=== PATIENT | male | born 1985 | race Caucasian/White ===

== ENCOUNTER 2018-07-17 20:00 | Emergency (ER) | payer SELFPAY ==
[~2018-07-17] VITALS: Ht 175.3 cm; Wt 61.0 kg
[~2018-07-17 20:00] MED LIST: ACULAR0.5 % OD; CEPHALEXIN500 MG OR; DARVOCET-N 100100 MG OR; DILAUDID4 MG OR; ELIMITE5 % EX; FLEXERIL OR; FLEXERIL10 MG OR; KEFLEX500 MG OR; LORTAB 5 OR; MEDDOSEPAK OR; NAPROSYN500 MG OR; NO HOME MEDS; PERCOCET 5/325M1 TAB PO; PRISTIQ50 MG OR; SEROQUEL200 MG OR; TEGRETOL OR; TRAMADOL HCL50 MG OR; TRIMOX500 MG PO; ULTRAM50 M1 PO; ULTRAM50 MG OR; VALIUM5 MG OR; VICOPROFEN OR; XANAX0.5 MG PO; ZOFRAN ODT4 MG OR; [UNRECOGNIZED DRUG - OTHER] OR
[2018-07-17] MEDS ORDERED: VOLTAREN - GENE75 MG PO (21:36)
[2018-07-17 22:00] VITALS: BP 127/79
== END 2018-07-17 22:00 | disposition home or self-care (01) | DRG 605 ==
LOC: ED 20:00
DX: S20.211A Contusion of right front wall of thorax, initial encounter (principal); S14.3XXA Injury of brachial plexus, initial encounter; S40.011A Contusion of right shoulder, initial encounter; S16.1XXA Strain of muscle, fascia and tendon at neck level, initial encounter; W23.1XXA Caught, crushed, jammed, or pinched between stationary objects, initial encounter; Y93.89 Activity, other specified; Y92.89 Other specified places as the place of occurrence of the external cause; Y99.0 Civilian activity done for income or pay

== ENCOUNTER 2018-09-30 14:28 | Emergency (ER) | payer SELFPAY ==
[~2018-09-30] VITALS: Ht 175.3 cm; Wt 63.6 kg
[~2018-09-30 14:28] MED LIST changes: +VOLTAREN - GENE75 MG PO
[2018-09-30] MEDS ORDERED: TRAMADOL HYDROC50 MG PO (15:18)
[2018-09-30 16:15] VITALS: BP 119/63
== END 2018-09-30 16:15 | disposition home or self-care (01) | DRG 951 ==
LOC: ED 14:28
DX: Z48.02 Encounter for removal of sutures (principal); Z48.01 Encounter for change or removal of surgical wound dressing

== ENCOUNTER 2018-10-09 13:49 | Emergency (ER) | payer SELFPAY ==
[~2018-10-09] VITALS: Ht 175.3 cm; Wt 59.0 kg
[~2018-10-09 13:49] MED LIST changes: +TRAMADOL HYDROC50 MG PO
[2018-10-09 14:50] LABS: IMMATURE GRANULOCYTES 0.3 % (0.0-5.0); MEAN CORPUSCULAR HGB 30.8 pG CALC (26.0-32.0); MEAN CORPUSCULAR HGB CONC 31.2 g/L CALC (32.0-36.0); NEUT# 6.32 thou/uL (1.82-7.42); RED BLOOD COUNT 3.25 mill/uL (4.70-6.10); RED CELL DISTRI WIDTH 16.5 % (11.5-15.5)
[2018-10-09 14:52] LABS: HEMATOCRIT 32.1 % (39.0-50.0); MEAN CELL VOLUME 98.8 fL CALC (80.0-100.0)
[2018-10-09 14:58] LABS: ALBUMIN 4.3 g/dL (3.2-5.0); ALKALINE PHOSPHATASE 70 u/l (38-126); ANION GAP 15 (6-22 (CALC)); BILIRUBIN, TOTAL 0.5 mg/dL (0.0-1.4); BUN 18 mg/dL (9-20); BUN/CREATININE RATIO 21 (12-20 (CALC)); CHLORIDE 108 mmol/l (95-108); CREATININE 0.8 mg/dL (0.7-1.3); GFR > 60 ML/MIN (>=60 (CALC)); GFR FOR AFR.AMER. > 60 ML/MIN (>=60 (CALC)); LIPASE 247 u/l (23-300); POTASSIUM 4.8 mmol/l (3.5-5.1); SGOT/AST 27 u/l (17-59); SODIUM 141 mmol/l (137-146); TOTAL PROTEIN 7.4 g/dL (6.3-8.2)
[2018-10-09 15:04] LABS: CARBON DIOXIDE 23 mmol/l (22-30)
[2018-10-09] MEDS ORDERED: GABAPENTIN100 MG PO (15:15)
[2018-10-09] MEDS ORDERED: MOTRIN800 MG PO (15:16)
[2018-10-09 15:42] LABS: COCAINE NEGATIVE (NEGATIVE)
[2018-10-09 15:43] LABS: BARBITURATES NEGATIVE (NEGATIVE); METHADONE NEGATIVE (NEGATIVE); OXCYCODONE NEGATIVE (NEGATIVE); TETRAHYDROCANNABIONOL NEGATIVE (NEGATIVE); TRICYLIC ANTIDEPRESSANTS NEGATIVE (NEGATIVE)
[2018-10-09] MEDS ORDERED: ZOFRAN4 M1 PO (16:24)
[2018-10-09 17:15] VITALS: BP 112/61
== END 2018-10-09 17:15 | disposition left against medical advice (07) | DRG 313 ==
LOC: ED 13:49
PROVIDERS: Emergency Medicine
DX: R07.89 Other chest pain (principal); F17.210 Nicotine dependence, cigarettes, uncomplicated; T24.002D Burn of unspecified degree of unspecified site of left lower limb, except ankle and foot, subsequent encounter; T24.001D Burn of unspecified degree of unspecified site of right lower limb, except ankle and foot, subsequent encounter; X08.8XXA Exposure to other specified smoke, fire and flames, initial encounter; Z95.5 Presence of coronary angioplasty implant and graft; Z91.19 Patient's noncompliance with other medical treatment and regimen

== ENCOUNTER 2018-10-16 22:53 | Emergency (ER) | payer SELFPAY ==
[~2018-10-16] VITALS: Ht 175.3 cm; Wt 63.6 kg
[~2018-10-16 22:53] MED LIST changes: +GABAPENTIN100 MG PO; +MOTRIN800 MG PO; +ZOFRAN4 M1 PO
[2018-10-17 00:30] VITALS: BP 128/79
== END 2018-10-17 00:30 | disposition home or self-care (01) | DRG 950 ==
LOC: ED 22:53
DX: T25.322D Burn of third degree of left foot, subsequent encounter (principal); T25.321D Burn of third degree of right foot, subsequent encounter; X08.8XXD Exposure to other specified smoke, fire and flames, subsequent encounter; F17.210 Nicotine dependence, cigarettes, uncomplicated

== ENCOUNTER 2019-04-02 15:35 | Emergency (ER) | payer OTHER ==
[~2019-04-02] VITALS: Ht 175.3 cm; Wt 62.0 kg
[2019-04-02 16:32] LABS: IMMATURE GRANULOCYTES 0.2 % (0.0-5.0); MEAN CORPUSCULAR HGB 30.7 pG CALC (26.0-32.0); MEAN CORPUSCULAR HGB CONC 33.9 g/L CALC (32.0-36.0); NEUT# 5.4 thou/uL (1.82-7.42); RED BLOOD COUNT 4.56 mill/uL (4.70-6.10); RED CELL DISTRI WIDTH 14.7 % (11.5-15.5)
[2019-04-02 16:37] LABS: HEMATOCRIT 41.3 % (39.0-50.0); MEAN CELL VOLUME 90.6 fL CALC (80.0-100.0)
[2019-04-02 16:53] LABS: ALBUMIN 4.9 g/dL (3.2-5.0); ALKALINE PHOSPHATASE 80 u/l (38-126); BILIRUBIN, TOTAL 0.3 mg/dL (0.0-1.4); BUN 14 mg/dL (9-20); BUN/CREATININE RATIO 14 (12-20 (CALC)); CHLORIDE 101 mmol/l (95-108); ETHYL ALCOHOL 0 mg/dl (0-30); GFR > 60 ML/MIN (>=60 (CALC)); GFR FOR AFR.AMER. > 60 ML/MIN (>=60 (CALC)); POTASSIUM 4.5 mmol/l (3.5-5.1); SGOT/AST 26 u/l (17-59); SODIUM 142 mmol/l (137-146)
[2019-04-02 16:55] LABS: ANION GAP 15 (6-22 (CALC)); CARBON DIOXIDE 31 mmol/l (22-30)
[2019-04-02 19:20] VITALS: BP 111/70
== END 2019-04-02 19:20 | disposition short-term general hospital (02) | DRG 605 ==
LOC: ED 15:35
PROVIDERS: Family Medicine
DX: S00.83XA Contusion of other part of head, initial encounter (principal); F17.200 Nicotine dependence, unspecified, uncomplicated; X79.XXXA Intentional self-harm by blunt object, initial encounter

== ENCOUNTER 2019-08-29 21:45 | Emergency (ER) | payer OTHER ==
[2019-08-29 22:32] LABS: HEMATOCRIT 41.5 % (39.0-50.0); HEMOGLOBIN 13.8 g/dl (14.0-18.0); IMMATURE GRANULOCYTES 0.3 % (0.0-5.0); MEAN CELL VOLUME 94.5 fL CALC (80.0-100.0); MEAN CORPUSCULAR HGB 31.4 pG CALC (26.0-32.0); MEAN CORPUSCULAR HGB CONC 33.3 g/dL CAL (32.0-36.0); NEUT# 4.36 thou/uL (1.82-7.42); RED BLOOD COUNT 4.39 mill/uL (4.70-6.10); RED CELL DISTRI WIDTH 12.8 % (11.5-15.5)
[2019-08-29 22:56] LABS: ALKALINE PHOSPHATASE 56 u/l (38-126); ANION GAP 10 (6-22 (CALC)); BILIRUBIN, TOTAL 0.4 mg/dL (0.0-1.4); BUN 17 mg/dL (9-20); BUN/CREATININE RATIO 17 (12-20 (CALC)); CARBON DIOXIDE 30 mmol/l (22-30); CHLORIDE 103 mmol/l (95-108); ETHYL ALCOHOL 0 mg/dl (0-30); GFR > 60 ML/MIN (>=60 (CALC)); GFR FOR AFR.AMER. > 60 ML/MIN (>=60 (CALC)); POTASSIUM 4.2 mmol/l (3.5-5.1); SGOT/AST 22 u/l (17-59); SODIUM 140 mmol/l (137-146); TOTAL PROTEIN 6.7 g/dL (6.3-8.2)
[2019-08-29 22:57] LABS: ALBUMIN 3.9 g/dL (3.2-5.0)
[2019-08-29 23:10] LABS: URINE BILIRUBIN - DIPSTICK NEGATIVE (NEGATIVE); URINE BLOOD DIPSTICK NEGATIVE (NEGATIVE); URINE COLOR YELLOW; URINE GLUCOSE - DIPSTICK NEGATIVE (NEGATIVE); URINE KETONE NEGATIVE (NEGATIVE); URINE LEUK ESTERASE NEGATIVE (NEGATIVE); URINE NITRITE - DIPSTICK NEGATIVE (Negative); URINE PROTEIN - DIPSTICK NEGATIVE (NEG-TRACE); URINE SPECIFIC GRAVITY 1.025; URINE UROBILINOGEN - DIPSTICK 0.2 E.U./dL (0.2)
[2019-08-29 23:16] LABS: COCAINE NEGATIVE (NEGATIVE); TETRAHYDROCANNABIONOL NEGATIVE (NEGATIVE)
[2019-08-29 23:17] LABS: BARBITURATES NEGATIVE (NEGATIVE); METHADONE NEGATIVE (NEGATIVE); TRICYLIC ANTIDEPRESSANTS NEGATIVE (NEGATIVE)
[2019-08-29 23:18] LABS: OXCYCODONE NEGATIVE (NEGATIVE)
[2019-08-29 23:29] VITALS: BP 114/78
== END 2019-08-29 23:35 | disposition designated cancer center or children's hospital (05) | DRG 914 ==
LOC: ED 21:45
PROVIDERS: Family Medicine
DX: S19.9XXA Unspecified injury of neck, initial encounter (principal); F31.9 Bipolar disorder, unspecified; S00.12XA Contusion of left eyelid and periocular area, initial encounter; F17.200 Nicotine dependence, unspecified, uncomplicated; X83.8XXA Intentional self-harm by other specified means, initial encounter; Y92.149 Unspecified place in prison as the place of occurrence of the external cause; X58.XXXA Exposure to other specified factors, initial encounter; Z95.5 Presence of coronary angioplasty implant and graft; Z91.5 Personal history of self-harm

== ENCOUNTER 2020-12-20 04:37 | Emergency (ER) | payer SELFPAY ==
[~2020-12-20] VITALS: Ht 175.3 cm; Wt 75.0 kg
[2020-12-20 05:54] LABS: IMMATURE GRANULOCYTES 0.2 % (0.0-5.0); MEAN CORPUSCULAR HGB 31.4 pG CALC (26.0-32.0); MEAN CORPUSCULAR HGB CONC 34.3 g/dL CAL (32.0-36.0); NEUT# 5.62 thou/uL (1.82-7.42); RED BLOOD COUNT 5.13 mill/uL (4.70-6.10); RED CELL DISTRI WIDTH 12.4 % (11.5-15.5)
[2020-12-20 06:06] LABS: URINE BILIRUBIN - DIPSTICK NEGATIVE (NEGATIVE); URINE BLOOD DIPSTICK NEGATIVE (NEGATIVE); URINE COLOR YELLOW; URINE GLUCOSE - DIPSTICK NEGATIVE (NEGATIVE); URINE KETONE NEGATIVE (NEGATIVE); URINE LEUK ESTERASE NEGATIVE (NEGATIVE); URINE PH 5.5 (4.5-8.0); URINE PROTEIN - DIPSTICK TRACE mg/dL (NEG-TRACE); URINE SPECIFIC GRAVITY 1.025; URINE UROBILINOGEN - DIPSTICK 0.2 E.U./dL (0.2)
[2020-12-20 06:07] LABS: ALBUMIN 4.7 g/dL (3.2-5.0); ALKALINE PHOSPHATASE 71 u/l (38-126); AMYLASE 81 u/l (30-110); BILIRUBIN, TOTAL 0.3 mg/dL (0.0-1.4); BUN 10 mg/dL (9-20); BUN/CREATININE RATIO 10 (12-20 (CALC)); CHLORIDE 108 mmol/l (95-108); CREATININE 1.1 mg/dL (0.7-1.3); ETHYL ALCOHOL 115 mg/dl (0-30); GFR > 60 ML/MIN (>=60 (CALC)); GFR FOR AFR.AMER. > 60 ML/MIN (>=60 (CALC)); LIPASE 110 u/l (23-300); SGOT/AST 39 u/l (17-59); SODIUM 143 mmol/l (137-146); TOTAL PROTEIN 8.3 g/dL (6.3-8.2)
[2020-12-20 06:08] LABS: ANION GAP 17 (6-22 (CALC)); CARBON DIOXIDE 21 mmol/l (22-30); POTASSIUM 3.2 mmol/l (3.5-5.1)
[2020-12-20 06:12] LABS: HEMATOCRIT 46.9 % (39.0-50.0); HEMOGLOBIN 16.1 g/dl (14.0-18.0); MEAN CELL VOLUME 91.4 fL CALC (80.0-100.0)
[2020-12-20 06:18] LABS: D-DIMER 0.64 mg/L (0.19-0.60); MYOGLOBIN 83 ng/mL (0 - 121)
[2020-12-20 06:19] VITALS: BP 106/76
[2020-12-20 06:19] LABS: URINE NITRITE - DIPSTICK NEGATIVE (Negative)
[2020-12-20 06:56] LABS: ACT PARTIAL THROMBO TIME 24.3 SECONDS (20.0-32.5); INTERNATIONAL NORMALIZED RATIO 0.9 RATIO (0.7-1.3); PROTHROMBIN TIME 9.9 SECONDS (9.0-12.5)
== END 2020-12-20 06:02 | disposition left against medical advice (07) | DRG 313 ==
LOC: ED 04:37
PROVIDERS: Family Medicine
DX: R07.9 Chest pain, unspecified (principal); E78.5 Hyperlipidemia, unspecified; I25.2 Old myocardial infarction; F17.210 Nicotine dependence, cigarettes, uncomplicated; Z91.19 Patient's noncompliance with other medical treatment and regimen; Z95.5 Presence of coronary angioplasty implant and graft; Z20.822 Contact with and (suspected) exposure to COVID-19